=== PATIENT | male | born 1950 | race Hispanic/Latino ===

== ENCOUNTER 2017-11-19 22:07 | Inpatient (IN) | payer BC, MEDICARE ==
[2017-11-19] MEDS ORDERED: LIDOCAINE HCL-MPF 2% 5ML VIAL ONE (22:13)
[2017-11-19] MEDS ORDERED: IOHEXOL-350 50ML VIAL IV ONE (22:14)
[2017-11-19] MEDS ORDERED: NITROGLYCERIN 5 MG/ML 10 ML VIAL IV ONE (22:14)
[2017-11-19] MEDS ORDERED: BIVALIRUDIN 250 MG/VIAL IV ONE (22:14)
[2017-11-19] MEDS ORDERED: IOHEXOL 350 MG/ML 100ML INFUS..BTL IV ONE (22:14)
[2017-11-19] MEDS ORDERED: DOPAMINE HCL 400 MG/D5%-WATER 0 ML IV ONE (22:15)
[2017-11-19] MEDS ORDERED: ATROPINE SULFATE 0.1 MG/ML 10 ML SYG IVP ONE (22:15)
[2017-11-19] MEDS ORDERED: EPTIFIBATIDE 75MG/100ML BOTTLE 100 ML IV ONE (23:19)
[2017-11-19] MEDS ORDERED: EPTIFIBATIDE 2 MG/ML 10 ML VIAL IVP ONE (23:19)
[2017-11-20] VITALS (15 sets, daily range): BP systolic 111–138; BP diastolic 70–91
[2017-11-20] MEDS ORDERED: ACETAMINOPHEN-CODEINE 300/30MG TAB PO PRN ×2 (00:15)
[2017-11-20] MEDS ORDERED: ONDANSETRON HCL 4 MG/2 ML VIAL IVP PRN (00:15)
[2017-11-20] MEDS ORDERED: TEMAZEPAM 30 MG CAP PO PRN (00:15)
[2017-11-20] MEDS: SODIUM CHLORIDE 0.9% 1000ML 1,000 ML IV SCH ×2 (00:15→10:04)
[2017-11-20] MEDS ORDERED: CLOPIDOGREL BISULFATE 300 MG TAB PO SCH (00:15)
[2017-11-20] MEDS ORDERED: EPTIFIBATIDE 75MG/100ML BOTTLE 100 ML IV SCH (00:15)
[2017-11-20] MEDS ORDERED: NITROGLYCERIN 50 MG/D5% WATER 1 BOT IV PRN (00:15)
[2017-11-20] MEDS ORDERED: TAMS0.4C32 PO (02:29)
[2017-11-20] MEDS ORDERED: HCTZ PO (02:29)
[2017-11-20] MEDS ORDERED: CARV6.25 PO (02:29)
[2017-11-20] MEDS ORDERED: OMEGA XL PO (02:29)
[2017-11-20] MEDS ORDERED: ALBU8.5H8 IH (02:29)
[2017-11-20] MEDS ORDERED: LISI-617 PO (02:29)
[2017-11-20 06:56] LABS: TROPONIN I 4.81 ng/mL (0.00-0.06)
[2017-11-20] MEDS: ASPIRIN 81MG TAB.CHEW PO SCH (08:40)
[2017-11-20] MEDS: CLOPIDOGREL BISULFATE 75 MG TAB PO SCH (08:40)
[2017-11-20] MEDS: PANTOPRAZOLE SODIUM 40 MG TABLET.DR PO SCH (08:40)
[2017-11-20 09:59] LABS: HEMATOCRIT 44.6 % (42-54); MEAN CORPUSCULAR HGB CONC 32.4 g/dL (32.0-36.0); MEAN CORPUSCULAR VOLUME 89.5 fL (79-99); PLATELET COUNT (AUTO) 199 K/uL (130-400); RED BLOOD CELL COUNT(AUTO) 4.98 MIL/uL (4.50-6.20); RED CELL DISTRIBUTION WIDTH 13.6 % (11.0-15.5); WHITE BLOOD COUNT (AUTO) 7.3 K/uL (4.8-10.8)
[2017-11-20] MEDS: ISOSORBIDE MONO 30MG TAB SR PO SCH (10:04)
[2017-11-20 10:07] LABS: POTASSIUM 3.6 mmol/L (3.5-5.1)
[2017-11-20] MEDS ORDERED: BENZONATATE 100 MG CAPSULE PO PRN (10:30)
[2017-11-20] MEDS ORDERED: AZITHROMYCIN 250 MG TABLET PO SCH (11:00)
[2017-11-20 11:50] LABS: APPEARANCE,URINE Clear (CLEAR); BILIRUBIN,URINE Negative (NEGATIVE); COLOR,URINE Yellow (YELLOW); GLUCOSE, URINE (UA) Negative (NEGATIVE); KETONES,URINE Negative (NEGATIVE); LEUKOCYTE ESTERASE ,URINE Trace (NEGATIVE); NITRATE,URINE Negative (NEGATIVE); OCCULT BLOOD,URINE Negative (NEGATIVE); PH,URINE 5.5 (5.0-8.0); PROTEIN,URINE Negative (NEGATIVE)
[2017-11-20 12:10] LABS: BACTERIA,URINE Few /HPF (None Seen); RBC,URINE None Seen /HPF (0-1); SQUAMOUS EPITHELIAL CELL,UR 0-2 /HPF (0-2)
[2017-11-20] MEDS: IPRATROPIUM/ALBUTEROL SULFATE 3 ML SOLUTION IH SCH ×2 (13:27→22:02)
[2017-11-20] MEDS: CARVEDILOL 6.25 MG TABLET PO SCH (20:27)
[2017-11-20] MEDS ORDERED: ATORVASTATIN CALCIUM 20 MG TABLET PO SCH (21:00)
[2017-11-20] MEDS: BUDESONIDE 0.25 MG/2 ML INH IH SCH (22:02)
[2017-11-21] VITALS: BP 119/75
[2017-11-21 03:48] LABS: CREATININE 0.9 mg/dL (0.5-1.5); POTASSIUM 4.3 mmol/L (3.5-5.1)
[2017-11-21 04:14] VITALS: BP 115/70
[2017-11-21] MEDS: IPRATROPIUM/ALBUTEROL SULFATE 3 ML SOLUTION IH SCH ×2 (06:27→13:57)
[2017-11-21] MEDS: BUDESONIDE 0.25 MG/2 ML INH IH SCH (06:45)
[2017-11-21 07:48] VITALS: BP 133/84
[2017-11-21] MEDS: CARVEDILOL 6.25 MG TABLET PO SCH (08:25)
[2017-11-21] MEDS: ISOSORBIDE MONO 30MG TAB SR PO SCH (08:25)
[2017-11-21] MEDS: ASPIRIN 81MG TAB.CHEW PO SCH (08:25)
[2017-11-21] MEDS: PANTOPRAZOLE SODIUM 40 MG TABLET.DR PO SCH (08:25)
[2017-11-21] MEDS: CLOPIDOGREL BISULFATE 75 MG TAB PO SCH (08:26)
[2017-11-21] MEDS ORDERED: TAMSULOSIN HCL 0.4 MG CAP.ER.24H PO SCH (09:00)
[2017-11-21 11:00] VITALS: BP 105/66
[2017-11-21 16:00] VITALS: BP 120/77
[2017-11-21] MEDS ORDERED: PNEUMOCOCCAL VACCINE POLYVALENT 0.5 ML/VIAL [PPV] ONE (16:21)
[2017-11-21] MEDS ORDERED: PNEUMOCOCCAL VACCINE POLYVALENT 0.5 ML/VIAL [PPV] IM SCH (16:30)
== END 2017-11-21 17:15 | disposition home or self-care (01) | DRG 250 ==
LOC: EDHIP 22:41 → 2BH 11-20 01:39
PROVIDERS: ADMIT Internal Medicine Cardiovascular Disease; ATTEND Internal Medicine Cardiovascular Disease
PROC: 02703ZZ Dilation of Coronary Artery, One Artery, Percutaneous Approach (ICD-10-PCS; principal; 2017-11-20)
PROC: 4A023N7 Measurement of Cardiac Sampling and Pressure, Left Heart, Percutaneous Approach (ICD-10-PCS; 2017-11-20)
PROC: B2111ZZ Fluoroscopy of Multiple Coronary Arteries using Low Osmolar Contrast (ICD-10-PCS; 2017-11-20)
PROC: 3E0234Z Introduction of Serum, Toxoid and Vaccine into Muscle, Percutaneous Approach (ICD-10-PCS; 2017-11-21)
DX: I23.7 Postinfarction angina (principal); I21.09 ST elevation (STEMI) myocardial infarction involving other coronary artery of anterior wall; N39.0 Urinary tract infection, site not specified; N17.9 Acute kidney failure, unspecified; I25.119 Atherosclerotic heart disease of native coronary artery with unspecified angina pectoris; I10 Essential (primary) hypertension; F17.210 Nicotine dependence, cigarettes, uncomplicated; I25.5 Ischemic cardiomyopathy; J42 Unspecified chronic bronchitis; I95.9 Hypotension, unspecified; Z82.49 Family history of ischemic heart disease and other diseases of the circulatory system; Z82.3 Family history of stroke; I25.84 Coronary atherosclerosis due to calcified coronary lesion; Z79.82 Long term (current) use of aspirin; Z79.02 Long term (current) use of antithrombotics/antiplatelets; Z23 Encounter for immunization
CPT/HCPCS: 36415; 71045; 80048; 80061; 81001; 82550; 83874; 84484; 85027; 85347; 87088; 90732; 92920; 93005; 93306; 93458; 94640; 94664; C1760; C1769; C1887; C1894; C9600; J0461; J0583; J1265; J1327; J1644; J3490; J7030; Q2038; Q9967

== ENCOUNTER 2019-11-05 13:29 | Emergency (ER) | payer BC, MEDICARE ==
[~2019-11-05 13:29] MED LIST: ALBU8.5H8 IH; HCTZ PO; LISI-617 PO; OMEGA XL PO; TAMS0.4C32 PO
[2019-11-05] MEDS ORDERED: KETOROLAC TROMETHAMINE 15MG/ML ONE (14:11)
[2019-11-05] MEDS ORDERED: DIAZEPAM 5 MG/ML 2 ML SYG ONE (14:12)
[2019-11-05 14:33] LABS: BASOPHILS % (AUTO) 0.5 % (0.0-5.0); EOSINOPHILS % (AUTO) 2.3 % (0.0-8.0); HEMATOCRIT 41.2 % (42-54); MEAN CORPUSCULAR HEMOGLOBIN 29.2 pg (27.0-33.0); MEAN CORPUSCULAR HGB CONC 32.8 g/dL (32.0-36.0); MEAN CORPUSCULAR VOLUME 89.2 fL (79-99); MONOCYTES % (AUTO) 12.4 % (3.0-13.0); NEUTROPHILS % (AUTO) 52.5 % (40.0-77.0); PLATELET COUNT (AUTO) 217 K/uL (130-400); RED BLOOD CELL COUNT(AUTO) 4.62 MIL/uL (4.50-6.20); RED CELL DISTRIBUTION WIDTH 13.9 % (11.0-15.5); WHITE BLOOD COUNT (AUTO) 7.3 K/uL (4.8-10.8)
[2019-11-05 14:45] LABS: CREATININE 0.8 mg/dL (0.5-1.5); POTASSIUM 4.1 mmol/L (3.5-5.1)
== END 2019-11-05 15:21 | disposition home or self-care (01) ==
LOC: EDH 13:29
DX: S13.9XXA Sprain of joints and ligaments of unspecified parts of neck, initial encounter (principal); I10 Essential (primary) hypertension; Z87.891 Personal history of nicotine dependence; X58.XXXA Exposure to other specified factors, initial encounter; Y93.89 Activity, other specified; Y92.89 Other specified places as the place of occurrence of the external cause; Y99.8 Other external cause status
CPT/HCPCS: 36415; 71045; 80048; 84484; 85025; 93005; 96374; 96375; 99285; J1885; J3360

== ENCOUNTER 2021-01-21 08:20 | Day surgery (SDC) | payer MEDICARE ==
[2021-01-19 14:30] LABS: BASOPHILS % (AUTO) 0.6 % (0.0-5.0); HEMATOCRIT 47.8 % (42-54); LYMPHOCYTES % (AUTO) 29.7 % (21.0-51.0); MEAN CORPUSCULAR HEMOGLOBIN 28.7 pg (27.0-33.0); MEAN CORPUSCULAR HGB CONC 31.2 g/dL (32.0-36.0); MEAN CORPUSCULAR VOLUME 92.1 fL (79-99); MONOCYTES % (AUTO) 11.1 % (3.0-13.0); NEUTROPHILS % (AUTO) 56.2 % (40.0-77.0); PLATELET COUNT (AUTO) 182 K/uL (130-400); RED BLOOD CELL COUNT(AUTO) 5.19 MIL/uL (4.50-6.20); RED CELL DISTRIBUTION WIDTH 13.2 % (11.0-15.5); WHITE BLOOD COUNT (AUTO) 7.9 K/uL (4.8-10.8)
[2021-01-19 14:32] LABS: APPEARANCE,URINE Clear (CLEAR); BILIRUBIN,URINE Negative (NEGATIVE); COLOR,URINE Yellow (YELLOW); GLUCOSE, URINE (UA) Negative (NEGATIVE); KETONES,URINE Negative (NEGATIVE); LEUKOCYTE ESTERASE ,URINE Trace (NEGATIVE); NITRATE,URINE Negative (NEGATIVE); OCCULT BLOOD,URINE Negative (NEGATIVE); PROTEIN,URINE Negative (NEGATIVE)
[2021-01-19 14:40] LABS: INR 1.53 (0.85-1.15)
[2021-01-19 14:42] LABS: PARTIAL THROMBOPLASTIN TIME 39.1 SEC (26.3-35.5)
[2021-01-19 14:44] LABS: CREATININE 0.8 mg/dL (0.5-1.5); POTASSIUM 5.9 mmol/L (3.5-5.1)
[2021-01-19 15:27] LABS: BACTERIA,URINE Rare /HPF (None Seen); RBC,URINE 0-1 /HPF (0-1); SQUAMOUS EPITHELIAL CELL,UR Rare /HPF (0-2); WBC,URINE 0-1 /HPF (0-1)
[2021-01-19 15:28] LABS: MUCUS,URINE Rare LPF (None Seen)
[2021-01-20 12:09] VITALS: BP 141/97
[2021-01-21] VITALS (7 sets, daily range): BP systolic 135–148; BP diastolic 74–109
[~2021-01-21] VITALS: Ht 170.2 cm; Wt 81.8 kg
[~2021-01-21 08:20] MED LIST changes: +0.9% NACL 500ML IV.SOLN 500 ML IV SCH; -ALBU8.5H8 IH; +ATOR40TA71 PO; +CARV12.580 PO; -HCTZ PO; -LISI-617 PO; +LISI20TA24 PO; -OMEGA XL PO; +RIVA20TA PO
[2021-01-21] MEDS ORDERED: 0.9%NACL 1000ML 1,000 ML IV ONE (09:27)
[2021-01-21] MEDS ORDERED: FLUMAZENIL 0.1MG/1ML 5ML VIAL IV ONE (09:27)
[2021-01-21] MEDS ORDERED: NALOXONE HCL 0.4 MG/1 ML ML ONE (09:27)
[2021-01-21] MEDS ORDERED: FENTANYL CITRATE PF 50 MCG/1 ML 2ML VIAL ONE ×2 (09:28→10:09)
[2021-01-21] MEDS ORDERED: MIDAZOLAM HCL 1 MG/ML 2ML VIAL ONE (09:28)
[2021-03-17] MEDS ORDERED: ISOS120T14 PO (11:58)
[2021-03-17] MEDS ORDERED: AMIO200T68 PO (11:58)
[2021-03-17] MEDS ORDERED: PRED5DRO25 OD (11:58)
== END 2021-01-21 12:21 ==
LOC: DAH 08:20
PROVIDERS: ATTEND Internal Medicine Cardiovascular Disease
DX: I48.20 Chronic atrial fibrillation, unspecified (principal); I50.33 Acute on chronic diastolic (congestive) heart failure; I21.9 Acute myocardial infarction, unspecified
CPT/HCPCS: 36415 ×2; 71045; 80048; 81001; 84132; 85025; 85610; 85730; 92960; 93005 ×3; A4215; A4216; A4221; A4222; A4223 ×3; A4606; A4615; A4657; A4663; A7002; J2250; J3010; J7030; J2310; J3490

== ENCOUNTER 2021-03-18 06:38 | Day surgery (SDC) | payer MEDICARE ==
[2021-03-16 13:21] LABS: BASOPHILS % (AUTO) 0.7 % (0.0-5.0); EOSINOPHILS % (AUTO) 1.6 % (0.0-8.0); HEMATOCRIT 47.7 % (42-54); LYMPHOCYTES % (AUTO) 24.4 % (21.0-51.0); MEAN CORPUSCULAR HEMOGLOBIN 28.4 pg (27.0-33.0); MEAN CORPUSCULAR HGB CONC 31.9 g/dL (32.0-36.0); MONOCYTES % (AUTO) 11.6 % (3.0-13.0); NEUTROPHILS % (AUTO) 61.3 % (40.0-77.0); PLATELET COUNT (AUTO) 202 K/uL (130-400); RED BLOOD CELL COUNT(AUTO) 5.36 MIL/uL (4.50-6.20); RED CELL DISTRIBUTION WIDTH 13.4 % (11.0-15.5)
[2021-03-16 13:28] LABS: POTASSIUM 5.1 mmol/L (3.5-5.1)
[2021-03-16 13:37] LABS: INR 1.57 (0.85-1.15); PROTHROMBIN TIME 16.4 SEC (9.6-11.6)
[2021-03-16 13:38] LABS: PARTIAL THROMBOPLASTIN TIME 40.7 SEC (26.3-35.5)
[2021-03-17 11:54] VITALS: BP 108/71
[~2021-03-18] VITALS: Ht 170.2 cm; Wt 83.5 kg
[2021-03-18] VITALS (17 sets, daily range): BP systolic 106–151; BP diastolic 71–105
[~2021-03-18 06:38] MED LIST changes: -0.9% NACL 500ML IV.SOLN 500 ML IV SCH; +0.9%NACL 1000ML 1,000 ML IV SCH; +AMIO200T68 PO; +ISOS120T14 PO; -LISI20TA24 PO; +PRED5DRO25 OD
[2021-03-18] MEDS ORDERED: FLUMAZENIL 0.1MG/1ML 5ML VIAL IV ONE (07:55)
[2021-03-18] MEDS ORDERED: FENTANYL CITRATE PF 50 MCG/1 ML 2ML VIAL ONE (07:56)
[2021-03-18] MEDS ORDERED: NALOXONE HCL 0.4 MG/1 ML ML ONE (07:56)
[2021-03-18] MEDS ORDERED: MIDAZOLAM HCL 1 MG/ML 2ML VIAL ONE (07:57)
== END 2021-03-18 11:05 | disposition home or self-care (01) ==
LOC: DAH 06:38 → CLH 06:38
PROVIDERS: ATTEND Internal Medicine Cardiovascular Disease
DX: I48.0 Paroxysmal atrial fibrillation (principal); I25.118 Atherosclerotic heart disease of native coronary artery with other forms of angina pectoris; I11.9 Hypertensive heart disease without heart failure; J44.9 Chronic obstructive pulmonary disease, unspecified; E66.3 Overweight; E78.49 Other hyperlipidemia; I25.2 Old myocardial infarction; Z95.5 Presence of coronary angioplasty implant and graft; Z79.899 Other long term (current) drug therapy; Z98.890 Other specified postprocedural states; Z87.891 Personal history of nicotine dependence; Z82.49 Family history of ischemic heart disease and other diseases of the circulatory system; Z68.28 Body mass index [BMI] 28.0-28.9, adult; Z98.49 Cataract extraction status, unspecified eye; Z79.01 Long term (current) use of anticoagulants
CPT/HCPCS: 36415; 80048; 85025; 85610; 85730; 92960; 93005 ×2; A4215; A4216; A4221; A4222; A4223 ×3; A4606; A4615; A4663; A7002; J2250; J3010; 99152; J2310; J3490